=== PATIENT | female | born 1960 | race American Indian/Alaskan Native ===

== ENCOUNTER 2019-06-15 12:22 | Emergency (ER) | payer OTHER ==
[2019-06-15 12:28] VITALS: BP 128/38
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
[2019-06-15] MEDS ORDERED: CYCLOBENZAPRINE 10 MG TAB PO ONE (15:06)
[2019-06-15] MEDS ORDERED: ACETAMINOPHEN 325 MG TAB PO ONE (15:06)
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
== END 2019-06-15 15:40 | disposition home or self-care (01) ==
LOC: ED 12:22
DX: S16.1XXA Strain of muscle, fascia and tendon at neck level, initial encounter (principal); S83.92XA Sprain of unspecified site of left knee, initial encounter; F17.200 Nicotine dependence, unspecified, uncomplicated; V49.49XA Driver injured in collision with other motor vehicles in traffic accident, initial encounter; Y93.89 Activity, other specified; Y92.488 Other paved roadways as the place of occurrence of the external cause; Y99.8 Other external cause status
CPT/HCPCS: 72040

== ENCOUNTER 2019-07-05 08:19 | Emergency (ER) | payer SELFPAY ==
[2019-07-05 08:28] VITALS: BP 135/75
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
== END 2019-07-05 13:12 | disposition home or self-care (01) ==
LOC: ED 08:19
DX: M62.838 Other muscle spasm (principal); M25.512 Pain in left shoulder; F17.200 Nicotine dependence, unspecified, uncomplicated; Z88.1 Allergy status to other antibiotic agents; Z88.6 Allergy status to analgesic agent; Z88.8 Allergy status to other drugs, medicaments and biological substances